=== PATIENT | male | born 1980 | race Caucasian/White ===

== ENCOUNTER → 2017-11-23 | Outpatient (CLI) | payer OTHER ==
--- NOTE | 2017-11-23 14:44 | DIAGNOSTIC IMAGING REPORT ---
CHEST 2 VIEWS ROUTINE CLINICAL HISTORY: J45.909 Asthmatic [id number] pain COMPARISON STUDY: 11/28/2015 FINDINGS: The bones soft tissues and hemidiaphragms are normal. The cardiomediastinal silhouette is normal. The lungs are clear. The pulmonary vasculature is normal. IMPRESSION: Negative chest. The above report was generated using voice recognition software. It may contain grammatical, syntax or spelling errors. Electronically signed by: Be Ortega M.D. 11/23/2017 2:43 PM Dictated Date/Time: 11/23/2017 2:42 PM
[2017-11-23 15:42] LABS: BASO % 0.5 %; BASO ABS # 0.03 K/uL (0-0.2); EOS % 0.2 %; EOS ABS # 0.01 K/uL (0-0.5); HEMATOCRIT 46.2 % (42-52); HEMOGLOBIN 16.7 g/dL (14.0-18.0); IG# 0.01 K/uL (0.00-0.02); LYMPH % 22.3 %; LYMPH ABS # 1.33 K/uL (1.2-3.4); MEAN CELL VOLUME 87.5 fL (80-100); MEAN CORPUSCULAR HEMOGLOBIN 31.6 pg (25-34); MEAN CORPUSCULAR HGB CONC 36.1 g/dl (32-36); MEAN PLATELET VOLUME 9.7 fL (7.4-10.4); MONO % 1.7 %; NEUT % 75.1 %; NEUT ABS # 4.49 K/uL (1.4-6.5); PLATELET COUNT 268 K/uL (130-400); RED CELL DISTRIBUTION WIDTH SD 41.2 fL (36.4-46.3); WHITE BLOOD COUNT 5.97 K/uL (4.8-10.8)
[2017-11-23 16:51] LABS: ALBUMIN 4.1 gm/dl (3.4-5.0); ALKALINE PHOSPHATASE 119 U/L (45-117); ALT/SGPT 86 U/L (12-78); AST/SGOT 32 U/L (15-37); BLOOD UREA NITROGEN 11 mg/dl (7-18); CALCIUM 9.1 mg/dl (8.5-10.1); CARBON DIOXIDE 26 mmol/L (21-32); CHOLESTEROL 191 mg/dl (0-200); CREATININE 1.14 mg/dl (0.60-1.40); GLUCOSE 175 mg/dl (70-99); POTASSIUM 3.4 mmol/L (3.5-5.1); SODIUM 139 mmol/L (136-145)
[2017-11-23 16:56] LABS: LDL CHOLESTEROL CALCULATED 123 mg/dl; TOTAL PROTEIN 7.9 gm/dl (6.4-8.2)
== END ==
LOC: C.RAD1850 14:13
PROVIDERS: ATTEND Physician Assistant Medical
DX: J45.909 Unspecified asthma, uncomplicated (principal); R06.2 Wheezing

== ENCOUNTER 2022-08-16 16:15 | Observation (INO) ==
[2022-08-16] MEDS ORDERED: dexAMETHasone**PF** 10 MG/ML VIAL IV ONE (17:01)
[2022-08-16] MEDS ORDERED: ALBUT/IPRATROP 3MG/0.5MG NEB 3 ML VIAL NEB ONE (17:01)
[2022-08-16 17:10] LABS: Basophils % (auto) 1.3 %; Eosinophils # (auto) 0.56 K/uL (0-0.50); Eosinophils % (auto) 7.4 %; Hematocrit (blood only) 49.9 % (40.1-51.0); Hemoglobin 18.4 g/dl (14.0-18.0); Immature Granulocytes # (auto) 0.02 K/uL (0.00-0.02); Immature Granulocytes % (auto) 0.3 %; Lymphocytes # (auto) 1.57 K/uL (1.2-3.4); Lymphocytes % (auto) 20.8 %; Mean Corpuscular Hemoglobin 31.8 pg (25.0-34.0); Mean Corpuscular Hgb Conc 36.9 g/dL (32.0-36.0); Mean Corpuscular Volume 86.3 fL (80.0-100.0); Mean Platelet Volume 9.3 fL (9.4-12.4); Monocytes # (auto) 0.48 K/uL (0.24-0.82); Monocytes % (auto) 6.4 %; Neutrophils # (auto) 4.81 K/uL (1.4-6.5); Neutrophils % (auto) 63.8 %; Platelet Count 271 K/uL (130-400); RDW Coefficient of Variation 12.4 % (11.5-14.5); RDW Standard Deviation 38.5 fL (36.4-46.3); Red Blood Count 5.78 M/uL (4.63-6.08); White Blood Count 7.54 K/ul (4.8-10.8)
--- NOTE | 2022-08-16 17:12 | XRay Report ---
XR chest 1V portable HISTORY: Shortness of breath. COMPARISON: Chest 08/16/2022. FINDINGS: The lungs are clear. Cardiac silhouette is normal in size. No pleural effusions. No pneumot horax. IMPRESSION: No acute process. ACT 112: Negative or not required by law. Electronically signed by: Ravi Soto M.D. 08/16/2022 5:11 PM
--- NOTE | 2022-08-16 17:17 | Emergency Department Note ---
Impression & Plan Reactive airway disease, Asthma with exacerbation, Tachycardia, Polycythemia ED Provider Note NAME: PABLO MONTES AGE: 42 SEX: M : 1980 ARRIVES VIA: Walk-In INFORMANT: Patient, ED PROVIDER(S): Panchito Goodwin DO CHIEF COMPLAINT: Shortness of breath HPI: The patient is a 42-year-old female who presented to the emergency departcaro center for an evaluation of difficulty breathing. The patient states he has had cough and difficulty breathing over the course of the last 7 8 days. He has had a cough and difficulty with shortness of breath with any ambulation. The patient was sent to the emergency department at the request of his primary care physician for a possible work-up for pulmonary embolism. He has no leg swelling or leg pain. He has had no recent procedures. He has had no recent traveling. He has a history of venous thromboembolic disease. He was using a steroid as well as bronchodilator therapy with only minimal relief of his symptoms. The patient describes some chest discomfort especially with coughing. ROS: See above HPI for pertinent positives & negatives. A total of 10 systems reviewed and were otherwise negative. PAST MEDICAL HISTORY: See Below PAST SURGICAL HISTORY: See Below FAMILY HISTORY: See Below SOCIAL HISTORY: See Below HOME MEDICATIONS: See Below ALLERGIES: See Below VITALS: See Below PHYSICAL EXAMINATION: GENERAL: Patient is awake alert in no acute distress patient is resting comfortably and showing no signs of anxiety EYES: The conjunctivae are clear. The pupils are round and reactive. EARS, NOSE, MOUTH AND THROAT: The nose is without any evidence of any deformity. NECK: The neck is nontender and supple. RESPIRATORY: Shallow respirations were noted. There was conversational tachypnea. Wheezing was noted in both lung anderson. CARDIOVASCULAR: Regular rate and rhythm noted there no murmurs rubs or gallops normal S1 normal S2. GASTROINTESTINAL: The abdomen is soft. Abdomen is nontender. MUSCULOSKELETAL/EXTREMITIES: There is no evidence of gross deformity full range of motion is noted in the hips and shoulders. SKIN: There is no obvious evidence of any rash. There are no petechiae, pallor or cyanosis noted. NEUROLOGIC: Patient is awake alert and oriented x3 MEDICAL DECISION MAKING: The patient is a 42-year-old male who presented to the emergency department at the request of his primary care physician for possible pulmonary embolism. The patient was tachycardic. His oxygen saturation was borderline. The patient had significant bronchospasm and shortness of breath with any exertion. He was treated with an hour-long DuoNeb IV fluids as well as IV steroids in the emergency department. He is not febrile. His swab was negative for COVID RSV and flu. I discussed the patient's laboratory and radiographic studies with him. He was able to ambulate but still had very significant dyspnea on exertion. Cardiac work-up did not appear to be consistent with acute coronary syndrome. Given his condition at this time I do feel the patient may benefit from inpatient management. For this reason I will [facility] Triage Nursing notes reviewed. Prior medical records reviewed Vital Signs: reviewed and remarkable for tachycardia and borderline hypoxia. Differential diagnosis: Reactive airway disease, pneumonia, pneumothorax, COPD, CHF, infections, cardiac ischemia, pulmonary embolism, musculoskeletal, gastrointestinal, as well as other pathologies. ER treatment provided: See below Diagnostics interpreted by me: ECG: EKG was obtained in the emergency department. My interpretation is sinus tachycardia 108 bpm. There was no ectopy. Nonspecific ST segment depressions were noted in the inferior lateral leads. This was compared to a tracing from October 15, 2021. No changes were noted. Cardiac Monitoring: An order was placed for continuous cardiac monitoring. The monitor shows a rate of 118 bpm with sinus tachycardia. Laboratory studies: As stated above and show below. Imaging studies: See below. Radiographic imaging was reviewed by myself Consultation(s): I discussed this case with Dr. Aevndaño who is [facility]. ED COURSE: Procedures: none Critical Care: I have personally spent greater than 45 minutes of critical care time in the direct management of this patient. This includes bedside care, interpretation of diagnostic studies, and testing, discussion with consultants, patient, and family members, and other required patient management activities. This 45 minutes is in excess of all separately billable procedures. Past Med/Surg History Medical History Benign essential hypertension Impaired fasting glucose Reactive airway disease Surgical History S/P wisdom tooth extraction Family History Denies family history of Ovarian cancer Prostate cancer Myocardial infarction Breast cancer Colorectal cancer Social History Smoking Status: Never smoker Second Hand Exposure: No; Hx Alcohol Use: No Hx Substance Use: Yes Last Used Substance: Unknown Last Used Substance Other:: over 2 years ago Preferred Language: Gibraltarian Communication Ability: Effective Visual Impairment: No Limitations Hearing Ability: Normal marital status: Current Living Situation: Spouse current occupational status: employed current occupation: digital advisor Feels Safe at Home: Yes Childhood Exposure to Second-Hand Smoke: Yes Dental Care, Regularly: Yes Physical Activity Frequency: Daily Seatbelt Use: always Sunscreen Use: No Allergies Allergies Allergy/AdvReac Type Severity Reaction Status Date / Time No Known Drug Allergies Allergy Unknown NKDA Verified 08/16/22 13:11 Home Meds Home Medications Medication Instructions Recorded Confirmed ibuprofen 200 mg tablet 400 mg PO Q6H PRN Pain 10/15/21 08/16/22 Previous Rx's Medication Instructions Recorded cyclobenzaprine 5 mg tablet 5 mg PO TID PRN muscle spasm #42 07/14/20 tabs irbesartan 300 1 tab PO DAILY #90 tabs 10/19/21 mg-hydrochlorothiazide 12.5 mg tablet budesonide-formoterol HFA 160 2 puff inhalation BID #10.2 grams 04/27/22 mcg-4.5 mcg/actuation aerosol inhaler (Symbicort) albuterol sulfate 90 mcg/actuation 2 puff inhalation QID PRN 08/16/22 aerosol inhaler (ProAir HFA) shortness of breath #8.5 grams methylprednisolone 4 mg tablets in See Rx Instructions .Route 08/16/22 a dose pack (Medrol (John)) .COMPLEX #21 ea Results & Data (ED) Vital Signs Vital Signs - 24 hr 08/16/22 16:22 08/16/22 17:02 08/16/22 17:19 Temperature 36.7 C Temperature Source Temporal Artery Scan Pulse Rate 114 H 116 H Pulse Rate [Apical] 117 H Pulse Rate from SpO2 Sensor Pulse Rhythm Regular Regular Pulse Rhythm [Apical] Pulse Strength Normal Pulse Strength [Apical] Respiratory Rate 20 16 Respiratory Effort / Characteristics Non-Labored Spontaneous Spontaneous Short of Breath Respiratory Depth Normal Respiratory Pattern Regular Blood Pressure 148/102 H Blood Pressure [Right Arm] Blood Pressure Mean 117 Blood Pressure Mean [Right Arm] Blood Pressure Position Sitting Blood Pressure Position [Right Arm] Pulse Oximetry 91 92 91 Oxygen Delivery Method Room Air Room Air Room Air Sepsis Recent Fever Within 48 Hours No Sepsis New/Unexplained Change in Mental Status No Sepsis Action Taken by Nursing No Action Required 08/16/22 17:18 08/16/22 17:20 08/16/22 17:30 Temperature Temperature Source Pulse Rate 110 H 100 H 107 H Pulse Rate [Apical] Pulse Rate from SpO2 Sensor 111 H 102 H 105 H Pulse Rhythm Pulse Rhythm [Apical] Pulse Strength Pulse Strength [Apical] Respiratory Rate 13 17 17 Respiratory Effort / Characteristics Respiratory Depth Respiratory Pattern Blood Pressure Blood Pressure [Right Arm] Blood Pressure Mean Blood Pressure Mean [Right Arm] Blood Pressure Position Blood Pressure Position [Right Arm] Pulse Oximetry 92 94 96 Oxygen Delivery Method Sepsis Recent Fever Within 48 Hours Sepsis New/Unexplained Change in Mental Status Sepsis Action Taken by Nursing 08/16/22 17:40 08/16/22 19:09 08/16/22 19:11 Temperature Temperature Source Pulse Rate 107 H Pulse Rate [Apical] 118 H Pulse Rate from SpO2 Sensor 107 H Pulse Rhythm Pulse Rhythm [Apical] Regular Pulse Strength Pulse Strength [Apical] Normal Respiratory Rate 25 H 19 22 Respiratory Effort / Characteristics Non-Labored Spontaneous Non-Labored Respiratory Depth Normal Respiratory Pattern Regular Blood Pressure Blood Pressure [Right Arm] 128/78 Blood Pressure Mean Blood Pressure Mean [Right Arm] 94 Blood Pressure Position Blood Pressure Position [Right Arm] Lying Pulse Oximetry 95 91 92 Oxygen Delivery Method Room Air Room Air Sepsis Recent Fever Within 48 Hours Sepsis New/Unexplained Change in Mental Status Sepsis Action Taken by Longterm Medications Current Medication List: was personally reviewed by me Laboratory Data Attestation: I reviewed the patient's lab results. 08/16/22 16:58 08/16/22 16:58 Lab Results 08/16/22 08/16/22 08/16/22 Range/Units 16:58 16:58 16:58 WBC 7.54 (4.8-10.8) K/ul RBC 5.78 (4.63-6.08) M/uL Hgb 18.4 H (14.0-18.0) g/dl Hct 49.9 (40.1-51.0) % MCV 86.3 (80.0-100.0) fL MCH 31.8 (25.0-34.0) pg MCHC 36.9 H (32.0-36.0) g/dL RDW Std Deviation 38.5 (36.4-46.3) fL RDW Coeff of Nathanael 12.4 (11.5-14.5) % Plt Count 271 (130-400) K/uL MPV 9.3 L (9.4-12.4) fL Immature Gran % (Auto) 0.3 % Neut % (Auto) 63.8 % Lymph % (Auto) 20.8 % [place] % (Auto) 6.4 % Eos % (Auto) 7.4 % Baso % (Auto) 1.3 % Neut # (Auto) 4.81 (1.4-6.5) K/uL Lymph # (Auto) 1.57 (1.2-3.4) K/uL [place] # (Auto) 0.48 (0.24-0.82) K/uL Eos # (Auto) 0.56 H (0-0.50) K/uL Baso # (Auto) 0.10 (0-0.2) K/uL Immature Gran # (Auto) 0.02 (0.00-0.02) K/uL PT Cancelled INR Cancelled APTT Cancelled PTT Ratio Cancelled D-Dimer Cancelled Sodium TNP Potassium TNP Chloride 104 (98-107) mmol/L Carbon Dioxide 24 (21-32) mmol/L Anion Gap TNP BUN 13 (6-23) mg/dl Creatinine 0.90 (0.6-1.4) mg/dl Est Cr Clr Drug Dosing 122.9 ml/min Est GFR ( Amer) 120.0 ml/min Est GFR (Non-Af Amer) 103.5 ml/min BUN/Creatinine Ratio 14.4 (10-20) Glucose 147 H (70-99(Fasting)) mg/dl Calcium 9.4 (8.5-10.1) mg/dl Magnesium TNP Total Bilirubin 1.3 H (0.2-1.0) mg/dl AST TNP ALT 25 (7-52) U/L Alkaline Phosphatase 69 (34-104) U/L Troponin I High Sens 10.0 (0-20) pg/ml Total Protein 8.0 (6.0-8.3) gm/dl Albumin 4.7 (3.4-5.0) gm/dl Globulin 3.3 (2.5-4.0) gm/dl Albumin/Globulin Ratio 1.4 (0.9-2) SARS-CoV-2 (PCR) (Negative) Influenza Type A (PCR) (Neg) Influenza Type B (PCR) (Neg) RSV (RT-PCR) (Neg) 08/16/22 08/16/22 08/16/22 Range/Units 17:00 18:20 18:20 WBC (4.8-10.8) K/ul RBC (4.63-6.08) M/uL Hgb (14.0-18.0) g/dl Hct (40.1-51.0) % MCV (80.0-100.0) fL MCH (25.0-34.0) pg MCHC (32.0-36.0) g/dL RDW Std Deviation (36.4-46.3) fL RDW Coeff of Nathanael (11.5-14.5) % Plt Count (130-400) K/uL MPV (9.4-12.4) fL Immature Gran % (Auto) % Neut % (Auto) % Lymph % (Auto) % [place] % (Auto) % Eos % (Auto) % Baso % (Auto) % Neut # (Auto) (1.4-6.5) K/uL Lymph # (Auto) (1.2-3.4) K/uL [place] # (Auto) (0.24-0.82) K/uL Eos # (Auto) (0-0.50) K/uL Baso # (Auto) (0-0.2) K/uL Immature Gran # (Auto) (0.00-0.02) K/uL PT 11.4 INR 1.1 APTT 28.7 PTT Ratio 1.0 D-Dimer < 190 Sodium 138 Potassium 3.4 L Chloride (98-107) mmol/L Carbon Dioxide (21-32) mmol/L Anion Gap BUN (6-23) mg/dl Creatinine (0.6-1.4) mg/dl Est Cr Clr Drug Dosing ml/min Est GFR ( Amer) ml/min Est GFR (Non-Af Amer) ml/min BUN/Creatinine Ratio (10-20) Glucose (70-99(Fasting)) mg/dl Calcium (8.5-10.1) mg/dl Magnesium 2.0 Total Bilirubin (0.2-1.0) mg/dl AST 18 ALT (7-52) U/L Alkaline Phosphatase (34-104) U/L Troponin I High Sens (0-20) pg/ml Total Protein (6.0-8.3) gm/dl Albumin (3.4-5.0) gm/dl Globulin (2.5-4.0) gm/dl Albumin/Globulin Ratio (0.9-2) SARS-CoV-2 (PCR) NEGATIVE (Negative) Influenza Type A (PCR) Negative (Neg) Influenza Type B (PCR) Negative (Neg) RSV (RT-PCR) Negative (Neg) Administered Medications Discontinued Medications Albuterol (Albut/Ipratrop 3mg/0.5mg Neb 3 Ml Vial) 12 ml NEB ONE ONE; Protocol Stop: 08/16/22 17:02 Last Admin: 08/16/22 17:17 Dose: 12 ml Documented By: CHARLIE Dexamethasone Sodium Phosphate (DexamethasonePf 10 Mg/Ml Vial) 10 mg IV NOW ONE Stop: 08/16/22 17:02 Last Admin: 08/16/22 17:06 Dose: 10 mg Documented By: SHANTE Sodium Chloride (Nss) 500 mls @ 999 mls/hr IV .Q31M ONE Stop: 08/16/22 18:50 Last Infusion: 08/16/22 19:09 Dose: 0 mls/hr Documented By: Admin: 08/16/22 18:34 Dose: 999 mls/hr Documented By: SHANTE Imaging Data Radiologist's Impression: Chest X-Ray 08/16/22 16:26 XR chest 1V portable HISTORY: Shortness of breath. COMPARISON: Chest 08/16/2022. FINDINGS: The lungs are clear. Cardiac silhouette is normal in size. No pleural effusions. No pneumothorax. IMPRESSION: No acute process. ACT 112: Negative or not required by law. Electronically signed by: Ravi Soto M.D. 08/16/2022 5:11 PM Discharge Plan Visit Data Chief Complaint: Shortness of Breath/Dyspnea Stated Complaint: REF BY DOC,SOB ED Provider: Panchito Goodwin Discharge Problem: Reactive airway disease, Asthma with exacerbation, Tachycardia, Polycythemia Patient Disposition: Being Evaluated by Hospitalist Forms Stand Alone Forms: My [facility] [place] Prescriptions Prescriptions: No Action irbesartan-hydrochlorothiazide 300-12.5 mg tablet 1 tab PO DAILY Qty: 90 3RF budesonide-formoterol [Symbicort] 160-4.5 mcg/actuation HFA aerosol inhaler 2 puff INHALATION BID Qty: 10.2 5RF albuterol sulfate [ProAir HFA] 90 mcg/actuation HFA aerosol inhaler 2 puff inhalation QID PRN (Reason: shortness of breath) Qty: 8.5 2RF methylprednisolone [Medrol (John)] 4 mg tablets,dose pack See Rx Instructions .Route .COMPLEX Qty: 21 0RF Rx Instructions: use as directed ; cyclobenzaprine 5 mg tablet 5 mg PO TID PRN (Reason: muscle spasm) Qty: 42 0RF ibuprofen 200 mg Tablet 400 mg PO Q6H PRN (Reason: Pain) Referrals Referrals: Vasyl Griffith III, CRNP [Primary Care Provider] - : Reactive airway disease Qualifiers: Asthma severity: moderate Asthma persistence: persistent Asthma complication type: uncomplicated Qualified Code(s): J45.40 - Moderate persistent asthma, uncomplicated Asthma with exacerbation Qualifiers: Asthma severity: moderate Asthma persistence: unspecified Qualified Code(s): J45.901 - Unspecified asthma with (acute) exacerbation
[2022-08-16 17:50] LABS: Alanine Aminotransferase 25 U/L (7-52); Albumin Globulin Ratio 1.4 (0.9-2); Albumin Level 4.7 gm/dl (3.4-5.0); Alkaline Phosphatase 69 U/L (34-104); BUN Creatinine Ratio 14.4 (10-20); Bilirubin,Total 1.3 mg/dl (0.2-1.0); Blood Urea Nitrogen 13 mg/dl (6-23); Calcium 9.4 mg/dl (8.5-10.1); Carbon Dioxide 24 mmol/L (21-32); Chloride 104 mmol/L (98-107); Creatinine Clr Calc Pharmacy 122.9 ml/min; Est GFR (Non-African American) 103.5 ml/min; Globulin 3.3 gm/dl (2.5-4.0); Glucose 147 mg/dl (70-99(Fasting))
[2022-08-16 18:02] LABS: Influenza A virus by PCR Negative (Neg); Influenza B virus by PCR Negative (Neg); RSV by PCR Negative (Neg); SARS CoV2 RNA(COVID-19) Ceph NEGATIVE (Negative)
[2022-08-16] MEDS ORDERED: SODIUM CHLORIDE 0.9% 500 ML IV ONE (18:20)
[2022-08-16 18:50] LABS: D Dimer < 190 ug/L FEU (0-500); INR 1.1 (0.9-1.1); Partial Thromboplastin Time 28.7 Seconds (21.0-31.0); Prothrombin Time 11.4 Seconds (9.0-12.0)
[2022-08-16 19:18] LABS: Potassium 3.4 mmol/L (3.5-5.1)
--- NOTE | 2022-08-16 19:49 | History & Physical Report ---
Date of Service August 16, 2022 Assessment & Plan (1) Asthma with exacerbation: Plan: 42yo male with a history of asthma, HTN, and HLD presents with a one-week history of SOB with exertion and URI symptoms including fatigue, low appetite, nonproductive cough, and chills. Symptoms have been going on for about one week. Asthma exacerbation Patient presents with a one-week history of SOB and URI symptoms Vitals notable for elevated BP and tachycardia; spO2 adequate on room air CXR negative for acute process, d-dimer negative on arrival, low suspicion for PE In the ED, received dexamethasone 10mg IV (x1) and albuterol neb, leading to an improvement in symptoms Admit to med/telemetry for further monitoring Solumedrol 40mg IV q12h, then convert to prednisone taper upon discharge No role for antibiotics at this time Flutter valve, incentive spirometry HTN: home regimen HLD: not on meds at home FEN: heart healthy diet Code status: full code DVT ppx: SCDs Dispo: med/telemetry (2) Benign essential hypertension: History of Present Illness Primary Care Provider: Vasyl Griffith III, CRNP 42yo male with a history of asthma, HTN, and HLD presents with a one-week history of SOB with exertion and URI symptoms including fatigue, low appetite, nonproductive cough, and chills. Symptoms have been going on for about one week. Patient went to his PCP today where he was noted to have an spO2 of 90% on room air; covid/flu were negative. A CXR was performed which showed no acute process. Patient was given a medrol dose pack, proair inhaler and advised to go to the ED if symptoms worsened, for further workup +/- PE rule-out. Patient denies fever, headache, vision changes, CP, edema, abdominal pain, nausea, vomiting, dysuria, hematochezia, melena, back pain, lightheadedness, dizziness, numbness, tingling, weakness, leg swelling/pain, or other symptoms. Denies recent procedures and recent travel. Upon arrival, vitals were notable for mildly-elevated BP (120-140s/70-100s) and tachycardia (100-110s); patient afebrile, spO2 adequate on room air. Initial labs were notable for erythrocytosis (Hgb 18.4), mild hypokalemia (3.4), and mildly elevated Tbili (1.3); no leukocytosis, platelets wnl, no additional electrolyte abnormalities, creatinine not elevated, covid PCR negative. D-dimer was negative. In the ED, patient received NSS 500mL bolus (x1), dexamethasone 10mg IV (x1), and an albuterol neb. EKG: sinus tachycardia, no overt ischemic change CXR: no acute process Surrogate decision-maker in case of an emergency: shala Adams (cell: [phone]) Allergies Allergy/AdvReac Type Severity Reaction Status Date / Time No Known Drug Allergies Allergy Unknown NKDA Verified 08/16/22 13:11 Home Medications Medication Instructions Recorded Confirmed Type cyclobenzaprine 5 mg tablet 5 mg PO TID PRN muscle spasm #42 07/14/20 08/16/22 Rx tabs ibuprofen 200 mg tablet 400 mg PO Q6H PRN Pain 10/15/21 08/16/22 History irbesartan 300 1 tab PO DAILY #90 tabs 10/19/21 08/16/22 Rx mg-hydrochlorothiazide 12.5 mg tablet budesonide-formoterol HFA 160 2 puff inhalation BID #10.2 grams 04/27/22 08/16/22 Rx mcg-4.5 mcg/actuation aerosol inhaler (Symbicort) albuterol sulfate 90 mcg/actuation 2 puff inhalation QID PRN 08/16/22 08/16/22 Rx aerosol inhaler (ProAir HFA) shortness of breath #8.5 grams methylprednisolone 4 mg tablets in See Rx Instructions .Route 08/16/22 08/16/22 Rx a dose pack (Medrol (John)) .COMPLEX #21 ea Past Med/Surg History Medical History Benign essential hypertension Impaired fasting glucose Reactive airway disease Surgical History S/P wisdom tooth extraction Family History Denies family history of Ovarian cancer Prostate cancer Myocardial infarction Breast cancer Colorectal cancer Social History Smoking Status: Never smoker Second Hand Exposure: No; Hx Alcohol Use: No Hx Substance Use: No Preferred Language: Icelandic Communication Ability: Effective Visual Impairment: No Limitations Hearing Ability: Normal Rubber Washer Required: No Beliefs That Will Affect Care: None marital status: Current Living Situation: Spouse current occupational status: employed current occupation: financial analysis advisor Feels Safe at Home: Yes Safety Concerns: Feels Safe At This Time Childhood Exposure to Second-Hand Smoke: Yes Dental Care, Regularly: Yes Physical Activity Frequency: Daily Seatbelt Use: always Sunscreen Use: No Assistive Devices: None Physical Exam Physical Exam: Constitutional: well-appearing, no acute distress HEENT: NCAT, no conjunctival injection CV: tachycardic, rhythm regular, no murmur appreciated, extremities well- perfused, no LE edema Resp: mild bibasilar end-expiratory wheezing, no rhonchi or crackles appreciated, no increased work of breathing GI: soft, nondistended, nontender, BS normoactive MSK: no gross deformities appreciated Skin: warm, dry, no rash appreciated Neuro: alert, oriented, no focal neurologic deficit appreciated Results & Data Results & Data ([facility]) Vital Signs (Past 12 Hours) Vital Signs Temp Pulse Pulse Resp BP BP Pulse Ox 08/16/22 19:11 22 92 08/16/22 19:09 118 H 19 128/78 91 08/16/22 17:40 107 H 25 H 95 08/16/22 17:30 107 H 17 96 08/16/22 17:20 100 H 17 94 08/16/22 17:18 110 H 13 92 08/16/22 17:19 117 H 16 91 08/16/22 17:02 116 H 92 08/16/22 16:22 36.7 C 114 H 20 148/102 H 91 O2 Del Method 08/16/22 19:11 Room Air 08/16/22 19:09 Room Air 08/16/22 17:40 08/16/22 17:30 08/16/22 17:20 08/16/22 17:18 08/16/22 17:19 Room Air 08/16/22 17:02 Room Air 08/16/22 16:22 Room Air Supervising Physician Co-Signing Physician Notes Attending addendum: I have physically seen this patient, have supervised the medical residents activities, and agree with the H&P unless as otherwise noted. Assessment and Plan: Asthma exacerbation- Failure of outpatient treatment Status post dexamethasone 10 mg IV in the ED and albuterol hour-long nebulizer Methylprednisolone 40 mg IV every 12 hours No antibiotics needed Nasal cannula oxygen, titrate to pulse ox 94-95% DuoNebs every 2 hours as needed Hypertension- Continue irbesartan/HCTZ Muscle spasm- Continue cyclobenzaprine as needed Remaining orders and notations as noted Resident Activity Tracking Resident Involvement: Resident Care Provided and Off Premise Service Representative Coverage Note Care Provided: Adult Hospital Medicine (1) Asthma with exacerbation Asthma persistence: unspecified Asthma severity: moderate Qualified Code(s): J45.901 - Unspecified asthma with (acute) exacerbation
[2022-08-16] MEDS ORDERED: ALBUTEROL HFA 8 GM INHALER INH PRN (20:24)
[2022-08-16] MEDS ORDERED: ALBUT/IPRATROP 3MG/0.5MG NEB 3 ML VIAL NEB PRN (22:14)
[2022-08-17] MEDS: methylPREDNISolone 40 MG in SYRINGE 0 ML IV SCH ×2 (07:53→17:58)
[2022-08-17] MEDS: FLUTICASONE/VILANTEROL 200/25MCG 14 PUFFS/INHALER INH SCH (07:54)
[2022-08-17] MEDS: IRBESARTAN 150 MG TAB PO SCH (07:55)
[2022-08-17] MEDS: hydroCHLOROthiazide 25 MG TAB PO SCH (07:55)
--- NOTE | 2022-08-17 20:08 | Billing Data ---
Date of Service August 17, 2022 Coding Level of Care Code 45296 INT INP/OBS CARE
[2022-08-17 21:16] LABS: Adenovirus PCR Not Detected (NotDetected); Bordetella parapertussis PCR Not Detected (NotDetected); Bordetella pertussis PCR Not Detected (NotDetected); Chlamydia pneumoniae PCR Not Detected (NotDetected); Coronavirus 229E PCR Not Detected (NotDetected); Coronavirus CoV-2 (COVID19)PCR Not Detected (NotDetected); Coronavirus HKU1 PCR Not Detected (NotDetected); Coronavirus NL63 PCR Not Detected (NotDetected); Coronavirus OC43PCR Not Detected (NotDetected); Human Metapneumovirus PCR Not Detected (NotDetected); Influenza A PCR Not Detected (NotDetected); Influenza B PCR Not Detected (NotDetected); Mycoplasma pneumoniae PCR Not Detected (NotDetected); Parainfluenza Virus 1 PCR Not Detected (NotDetected); Parainfluenza Virus 2 PCR Not Detected (NotDetected); Parainfluenza Virus 3 PCR Not Detected (NotDetected); Parainfluenza Virus 4 PCR Not Detected (NotDetected); Respiratory Syncytial VirusPCR Not Detected (NotDetected); Rhinovirus/Enterovirus PCR Not Detected (NotDetected)
--- NOTE | 2022-08-17 22:24 | Hospitalist Progress Note ---
Date of Service August 17, 2022 Assessment & Plan (1) Asthma with exacerbation: Plan: 42yo male with a history of asthma, HTN, and HLD presents with a one-week history of SOB with exertion and URI symptoms including fatigue, low appetite, nonproductive cough, and chills. Symptoms have been going on for about one week. Asthma exacerbation Patient presents with a one-week history of SOB and URI symptoms Vitals notable for elevated BP and tachycardia; spO2 adequate on room air CXR negative for acute process, d-dimer negative on arrival, low suspicion for PE In the ED, received dexamethasone 10mg IV (x1) and albuterol neb, leading to an improvement in symptoms Admit to med/telemetry for further monitoring Solumedrol 40mg IV q12h, will switch to daily on 08/18 _ patient continues to have tachycardia however, which does not correlate with his inhalers. -XR however is not showing any changes. Concern this may be a viral origen, perhaps PCP pneumonia. -will obtain bioofire, if negative, will need to obtain a ct scan to check for lung parenchyma. -Given that he is tachycardic, it may be reasonable to add some contrast to rtule out a P/E. -obtain sputum culture. No role for antibiotics at this time Flutter valve, incentive spirometry HTN: home regimen HLD: not on meds at home FEN: heart healthy diet Code status: full code DVT ppx: SCDs Dispo: med/telemetry (2) Benign essential hypertension: Admission and Anticipated Discharge Date Admission Date: August 17, 2022 Subjective Patient reports that he still is having wheezing. Patient states that he is not close to his baseline. He is concerned about his O2 sat being 90% on room air. He reports he never had a rescue inhaler as he asthma has been controlled with synthroid. He states he had a winter student welcoming session 1 day prior to feeling sick about 10 days ago. He also has spent time in his basement, where they keep the kitter litter box, but it is clean. They do not notice any fungus there or mold. He denied any sick contacts. Review of Systems Review of Systems: All systems reviewed & are unremarkable except as noted in HPI & below Physical Exam Physical Exam: Constitutional: well-appearing, no acute distress HEENT: NCAT, no conjunctival injection CV: tachycardic, rhythm regular, no murmur appreciated, extremities well- perfused, no LE edema Resp: mild bibasilar end-expiratory wheezing, no rhonchi or crackles appreciated, no increased work of breathing GI: soft, nondistended, nontender, BS normoactive MSK: no gross deformities appreciated Skin: warm, dry, no rash appreciated Neuro: alert, oriented, no focal neurologic deficit appreciated Results & Data Results & Data ([facility]) Vital Signs (Past 12 Hours) Vital Signs Temp Pulse Pulse Pulse Resp BP Pulse Ox 08/17/22 19:35 119 H 08/17/22 19:15 36.5 C 108 H 16 132/79 91 08/17/22 19:10 111 H 18 90 08/17/22 16:20 116 H 08/17/22 16:21 116 H 08/17/22 16:03 36.4 C L 121 H 17 131/83 90 08/17/22 12:00 115 H 16 108/86 92 O2 Del Method 08/17/22 19:35 08/17/22 19:15 Room Air 08/17/22 19:10 Room Air 08/17/22 16:20 08/17/22 16:21 08/17/22 16:03 Room Air 08/17/22 12:00 Room Air PG Care Time/CCT Total # of Minutes Spent Total Time Spent with Patient: Total time spent is greater than 50% in coordination of care (as documented) at patient's floor/unit and/or counseling patient: Coding Level of Care Code 71075 SUB INP/OBS CARE 3/50MIN Diagnoses Asthma with exacerbation J45.901 Asthma persistence: unspecified Asthma severity: moderate Benign essential hypertension I10 (1) Asthma with exacerbation Asthma persistence: unspecified Asthma severity: moderate Qualified Code(s): J45.901 - Unspecified asthma with (acute) exacerbation
[2022-08-18] MEDS: methylPREDNISolone 40 MG in SYRINGE 0 ML IV SCH ×2 (06:32→17:45)
--- NOTE | 2022-08-18 06:49 | Electrocardiogram Report ---
Test Reason : Blood Pressure : / mmHG Vent. Rate : 108 BPM Atrial Rate : 108 BPM P-R Int : 116 ms QRS Dur : 096 ms QT Int : 348 ms P-R-T Axes : 068 084 072 degrees QTc Int : 466 ms Poor data quality, interpretation may be adversely affected Sinus tachycardia Nonspecific ST abnormality When compared with ECG of 15-OCT-2021 17:48, Vent. rate has increased BY 41 BPM Nonspecific T wave abnormality no longer evident in Lateral leads Confirmed by Cisco Lamar ([id number]) on 08/18/2022 6:49:38 AM Referred By: REFERRED SELF Confirmed By:Cisco Lamar
[2022-08-18 07:22] LABS: Basophils # (auto) 0.03 K/uL (0-0.2); Basophils % (auto) 0.2 %; Hematocrit (blood only) 48.9 % (40.1-51.0); Hemoglobin 17.3 g/dl (14.0-18.0); Immature Granulocytes # (auto) 0.09 K/uL (0.00-0.02); Immature Granulocytes % (auto) 0.5 %; Lymphocytes % (auto) 11.7 %; Mean Corpuscular Hemoglobin 31.4 pg (25.0-34.0); Mean Corpuscular Hgb Conc 35.4 g/dL (32.0-36.0); Mean Corpuscular Volume 88.7 fL (80.0-100.0); Mean Platelet Volume 9.4 fL (9.4-12.4); Monocytes # (auto) 1.04 K/uL (0.24-0.82); Monocytes % (auto) 5.5 %; Neutrophils # (auto) 15.39 K/uL (1.4-6.5); Neutrophils % (auto) 82.1 %; Platelet Count 285 K/uL (130-400); RDW Coefficient of Variation 12.6 % (11.5-14.5); RDW Standard Deviation 41.1 fL (36.4-46.3); Red Blood Count 5.51 M/uL (4.63-6.08); White Blood Count 18.75 K/ul (4.8-10.8)
[2022-08-18] MEDS: FLUTICASONE/VILANTEROL 200/25MCG 14 PUFFS/INHALER INH SCH (08:03)
[2022-08-18 08:04] LABS: Albumin Level 4.2 gm/dl (3.4-5.0); Bilirubin,Total 0.9 mg/dl (0.2-1.0); Calcium 9.4 mg/dl (8.5-10.1); Magnesium 2.1 mg/dl (1.7-2.4)
[2022-08-18] MEDS: hydroCHLOROthiazide 25 MG TAB PO SCH (08:04)
[2022-08-18] MEDS: IRBESARTAN 150 MG TAB PO SCH (08:04)
[2022-08-18 08:10] LABS: Albumin Globulin Ratio 1.4 (0.9-2); BUN Creatinine Ratio 25.3 (10-20); C Reactive Protein 0.57 mg/dl (0-0.5); Creatinine Clr Calc Pharmacy 91.8 ml/min; Est GFR (African American) 121.7 ml/min; Globulin 2.9 gm/dl (2.5-4.0); INR 1.1 (0.9-1.1); Phosphorus 4.6 mg/dl (2.5-4.9); Prothrombin Time 11.7 Seconds (9.0-12.0); Total Protein 7.1 gm/dl (6.0-8.3)
[2022-08-18] MEDS ORDERED: OPTIRAY 320 500ml IV ONE (10:23)
--- NOTE | 2022-08-18 10:37 | CT Scan Report ---
CT angio chest PE protocol CLINICAL HISTORY: PE/ also looking for parenchymal changes TECHNIQUE: Multidetector row helical CT of the chest was performed with angiographic protocol. Mejia l and sagittal reformations were obtained. Coronal and sagittal MIPS were obtained from the axial roxana a set and were submitted for review. Automated dose lowering techniques and/or adjustment according to patient size were utilized for this exam. CT DOSE: 704.36 mGy.cm Comparison: Comparison is made to chest radiograph 08/16/2022 FINDINGS: Lungs and pleura: A few groundglass opacities are seen predominantly in the bilateral upper lobes. Br onchial wall thickening is seen. Heart and pericardium: Heart size is normal. No pericardial effusion. Vessels: No evidence of pulmonary embolism. Mediastinum and anya: Unremarkable. Chest wall and lower neck: Unremarkable. Abdomen: Thickening of the distal esophagus is seen. Bones: Degenerative changes are seen in the spine. IMPRESSION: 1. No evidence of pulmonary embolism. 2. Multiple groundglass opacities predominantly in the upper lobes may represent mild infectious/inf lammatory process. ACT 112: Negative or not required by law. Electronically signed by: Santos Shahid M.D. 08/18/2022 10:36 AM
--- NOTE | 2022-08-26 17:26 | Discharge Summary ---
Date of Service August 18, 2022 Admission HPI Per Admitting Provider 42yo male with a history of asthma, HTN, and HLD presents with a one-week history of SOB with exertion and URI symptoms including fatigue, low appetite, nonproductive cough, and chills. Symptoms have been going on for about one week. Patient went to his PCP today where he was noted to have an spO2 of 90% on room air; covid/flu were negative. A CXR was performed which showed no acute process. Patient was given a medrol dose pack, proair inhaler and advised to go to the ED if symptoms worsened, for further workup +/- PE rule-out. Patient denies fever, headache, vision changes, CP, edema, abdominal pain, na usea, vomiting, dysuria, hematochezia, melena, back pain, lightheadedness, dizziness, numbness, tingling, weakness, leg swelling/pain, or other symptoms. Denies recent procedures and recent travel. Upon arrival, vitals were notable for mildly-elevated BP (120-140s/70-100s) and tachycardia (100-110s); patient afebrile, spO2 adequate on room air. Initial labs were notable for erythrocytosis (Hgb 18.4), mild hypokalemia (3.4), and mildly elevated Tbili (1.3); no leukocytosis, platelets wnl, no additional electrolyte abnormalities, creatinine not elevated, covid PCR negative. D-dimer was negative. In the ED, patient received NSS 500mL bolus (x1), dexamethasone 10mg IV (x1), and an albuterol neb. EKG: sinus tachycardia, no overt ischemic change CXR: no acute process Surrogate decision-maker in case of an emergency: Shantell Adams (cell: [phone]) Principal Diagnosis asthma exacerbation Discharge Exam Constitutional: well-appearing, no acute distress HEENT: NCAT, no conjunctival injection CV: tachycardic, rhythm regular, no murmur appreciated, extremities well- perfused, no LE edema Resp: no wheezing, no rhonchi or crackles appreciated, no increased work of breathing GI: soft, nondistended, nontender, BS normoactive MSK: no gross deformities appreciated Skin: warm, dry, no rash appreciated Neuro: alert, oriented, no focal neurologic deficit appreciated Discharge Data Allergies Allergy/AdvReac Type Severity Reaction Status Date / Time No Known Drug Allergies Allergy Unknown NKDA Verified 08/26/22 09:22 Consultations 08/16/22 19:37 ED Decision to Admit Stat Ordered Studies 08/18/22 08:29 CT angio chest PE protocol Urgent Hospital Course (1) Asthma with exacerbation: 42yo male with a history of asthma, HTN, and HLD presents with a one-week history of SOB with exertion and URI symptoms including fatigue, low appetite, nonproductive cough, and chills. Symptoms have been going on for about one week. Asthma exacerbation Patient presents with a one-week history of SOB and URI symptoms Vitals notable for elevated BP and tachycardia; spO2 adequate on room air CXR negative for acute process, d-dimer negative on arrival, low suspicion for PE In the ED, received dexamethasone 10mg IV (x1) and albuterol neb, leading to an improvement in symptoms Admit to med/telemetry for further monitoring Solumedrol 40mg IV q12h, will switch to daily on 08/18 _ patient continues to have tachycardia however, which does not correlate with his inhalers. -XR however is not showing any changes. Concern this may be a viral origen, perhaps PCP pneumonia. -BIOFIRE negative. -Given that he is tachycardic, pulmonary embolism was ruled out with CTA -obtain sputum culture. will discharge on steroid taper and antibiotics as stated below. Flutter valve, incentive spirometry CT scan showed: Multiple groundglass opacities predominantly in the upper lobes may represent mild infectious/inflammatory process. HTN: home regimen HLD: not on meds at home (2) Benign essential hypertension: Total Time Total Time Spent Total Time Spent (In Minutes): 32 Discharge Plan Discharge Items Patient Disposition: Home - Self-Care Reason For Visit: asthma exacerbation Discharge Diagnosis: asthma exacerbation Activity: Resume your previous activity Non-emergency contact: Primary Care Provider Call non-emergency contact if: you have any medication questions Follow-up/Referrals: Vasyl Griffith III, CRNP [Primary Care Provider] - 08/26/22 9:20 am Diet: Heart Healthy Addtl Attending Provider Instructions: Good evening Mr. Adams, You were seen for an asthma flair up. Your work up essentially ruled out a clot in the lung, a viral illness and pneumonia. Likely some sort of allergy or mild bacterial infection causing this flair up. I will discharge you on a 5 days course of cefdinir (twice a day) and azithromycin once a day. A friendly reminder on using the cell phone alarm to help alert you on taking your medicine so you don't miss a dose. You will also be on a slow taper of prednisone. Please abstain from the following while on prednisone: ibuprofen, naprosyn or other NSAIDs (essentially any over the counter pain medicine). This could put you at risk of a stomach or intestinal bleed. Tylenol (acetaminophen) is safe to use. Please followup with PCP in 1-2 weeks. It was a pleasure. Kindest regards, Salinas Goerge Pending Studies at Discharge: No Stand-Alone Forms: My [facility], Smoking Cessation Medications and DC Order Prescriptions: New prednisone 10 mg tablet 10 mg PO DAILY Qty: 32 0RF Rx Instructions: Take 4 tabs once a day for 3 days then 3 tabs for 3 days then 2 tabs for 3 days then 1 tab for 3 days half a tab for 4 days Continued irbesartan-hydrochlorothiazide 300-12.5 mg tablet 1 tab PO DAILY Qty: 90 3RF budesonide-formoterol [Symbicort] 160-4.5 mcg/actuation HFA aerosol inhaler 2 puff INHALATION BID Qty: 10.2 5RF albuterol sulfate [ProAir HFA] 90 mcg/actuation HFA aerosol inhaler 2 puff inhalation QID PRN (Reason: shortness of breath) Qty: 8.5 2RF Discontinued methylprednisolone [Medrol (John)] 4 mg tablets,dose pack See Rx Instructions .Route .COMPLEX Qty: 21 0RF Rx Instructions: use as directed ; ibuprofen 200 mg Tablet 400 mg PO Q6H PRN (Reason: Pain) Discharge Orders: Discharge Order (Routine); Ordered 08/18/22 Ordered By: Salinas Okeefe/Other Patient Handouts: My Asthma Symptom Diary, Controlling Your Asthma Admission Data Admit Date/Time: 08/16/22 20:32 Attending Provider: Salinas George Admit Provider: Xu Adams Primary Care Provider: Vasyl Griffith III Other Providers: Monico Davidson Other Interventions: *Nursing Shift Assessment Last Done: 08/18/22 19:53 Discharge Summary Assessment (RN) Last Done: 08/18/22 19:53 Coding Level of Care Code HOSP INP/OBS DISCH >30 MIN Diagnoses Asthma with exacerbation J45.901 Asthma persistence: unspecified Asthma severity: moderate Benign essential hypertension I10
== END 2022-08-18 19:52 | disposition home or self-care (01) ==
LOC: ED 16:15 → EDINP 16:15 → SUATTDRO 20:32 → 2N 22:15
DX: Z79.899 Other long term (current) drug therapy; D75.1 Secondary polycythemia; J45.901 Unspecified asthma with (acute) exacerbation; R06.02 Shortness of breath; I10 Essential (primary) hypertension; R05.9 Cough, unspecified